=== PATIENT | female | born 1980 | race Caucasian/White ===

== ENCOUNTER 2018-09-10 17:57 | Emergency (ER) | payer MEDICAID ==
[~2018-09-10] VITALS: Ht 160 cm; Wt 71.7 kg
[2018-09-10 18:16] VITALS: Ht 160 cm; Wt 71.7 kg
[2018-09-10 19:48] LABS: CALCIUM 8.8 mg/dL (8.5-10.1); CARBON DIOXIDE 25.9 mmol/L (21-32); CHLORIDE SERUM 102 mmol/L (98-107); CREATININE SERUM 0.7 mg/dL (0.6-1.0); GFR1 > 60 mL/min; GLUCOSE SERUM 97 mg/dL (74-106); POTASSIUM SERUM 3.6 mmol/L (3.5-5.1); SODIUM SERUM 139 mmol/L (136-145)
[2018-09-10 19:52] LABS: ALBUMIN 3.7 g/dL (3.4-5.0); ALKALINE PHOSPHATASE 76 U/L (46-116); ALT/SGPT 17 U/L (14-59); AST/SGOT 12 U/L (15-37); BILIRUBIN TOTAL 0.59 mg/dL (0.20-1.00)
[2018-09-10 19:57] LABS: TOTAL PROTEIN, SERUM 8.4 g/dL (6.4-8.2)
[2018-09-10 20:08] LABS: PLATELET COUNT 447 x10^3mcL (130-400); RED CELL DISTRIBUTION WIDTH 23.4 % (11.5-14.5)
[2018-09-10 20:53] LABS: BAND NEUTROPHIL 1 % (0-10); BASOPHIL 0 % (0-2); MONOCYTE 2 % (0-7); SEGMENTED NEUTROPHILS 76 % (37-75)
[2018-09-10 20:55] LABS: rbc morphology (normal/abnorm) ABNORMAL (NORMAL)
[2018-09-11 03:53] LABS: BASOPHIL % 0.3 % (0-2); PLATELET COUNT 264 x10^3mcL (130-400)
[2018-09-11 03:54] LABS: RED CELL DISTRIBUTION WIDTH 31.1 % (11.5-14.5)
[2018-09-11 04:11] VITALS: BP 112/68
== END 2018-09-11 04:11 | disposition home or self-care (01) ==
LOC: ED 17:57
PROVIDERS: Emergency Medicine
DX: N92.0 Excessive and frequent menstruation with regular cycle (principal); D50.9 Iron deficiency anemia, unspecified; R42 Dizziness and giddiness
CPT/HCPCS: 83880; J1200; J1885; J1940; J2405; J7030; J7050; P9016